=== PATIENT | female | born 1965 | race Caucasian/White ===

== ENCOUNTER → 2017-12-17 | Outpatient (CLI) | payer BC ==
--- NOTE | 2017-12-17 12:12 | WWHP ---
[facility] - HISTORY AND PHYSICAL DATE OF DICTATION: 12/17/2017. CHIEF COMPLAINT: The patient is here for her routine gynecologic exam and mammogram. HPI: This is a 52-year-old, G5, P2, 03-2 with an LMP of 11/23/2017. Her partner is status post vasectomy. The patient is without gynecologic complaints. She states her periods are regular every month. PAST MEDICAL HISTORY: Intermittent tachycardia. She denies any other medical problems. MEDICATIONS: None. ALLERGIES: SULFA. PAST SURGICAL HISTORY: D and C 2008. 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 Has no other history of STDs. SOCIAL HISTORY: She denies tobacco and drug use and has about 12 alcohol containing drinks per week. She has been with her boyfriend since 2014 and lives with him. She works for [employer] and works out of her home. FAMILY HISTORY: His strong for breast cancer in her mother. Maternal aunt and both grandmothers. One grandmother also had gastric cancer. REVIEW OF SYSTEMS: She has gained 2 pounds over the last year. She denies respiratory, cardiac or GI problems. : She does have occasional slight urinary leakage with coughing and sneezing and also occasionally with jumping. She states when she runs, she typically will not leak unless her bladder is fairly full. PHYSICAL EXAM: Blood pressure 105/70, height 5 feet 7 inches, weight 148 pounds. BMI 23. Temperature 98.5, pulse 58, this is a well-developed, well-nourished, white female, who is alert and oriented x3, in no acute distress. HEENT is within normal limits. NECK: Supple without mass or thyromegaly. Chest and LUNGS: Clear to auscultation. HEART: Regular rate and rhythm. Breasts are without mass or discharge. Axillary exam is negative for adenopathy. Back negative for CVA tenderness. ABDOMEN: Soft, nontender, without palpable masses pelvic exam normal external genitalia. Cervix and vagina appear normal. There is no evidence of prolapse at rest. With Valsalva and cough there is a slight urethral mobility with no urinary leakage demonstrated. The uterus is mid position nongravid size and nontender. There are no palpable adnexal masses or tenderness. Rectal exam is negative for mass or tenderness and is negative for occult blood. There is good sphincter tone. EXTREMITIES: Nontender. IMPRESSION: 1. 52-year-old premenopausal female with normal gynecologic exam whose partner is status post vasectomy. 2. Mild stress urinary incontinence without significant physical findings at this time. PLAN: 1. Pap smear was deferred since she had a normal one last year. 2. Self breast examination was discussed. 3. Screening mammogram will be done today. 4. I have recommended screening colonoscopy due to her age and Dr. Campbell's card was given to the patient for this. 5. I have recommended Kegel exercises and timed voids. Instructions on these were given to the patient. If she continues to have problems with stress urinary incontinence, consider referral to a LINE CONSTRUCTION SUPERINTENDENT urologist. 6. She will return in 1 year and p.r.n. MMMARY LOU / IJN: [id number] /
--- NOTE | 2017-12-19 08:27 | MM ---
Reason for exam: screening (asymptomatic). Last mammogram was performed 1 year and 4 months ago. History: Patient history of other cancer and had first child at age 33. Family history of breast cancer in maternal grandmother, breast cancer in mother, and breast cancer in maternal aunt. Physical Findings: A clinical breast exam by your physician is recommended on an annual basis and results should be correlated with mammographic findings. MG 3D Screening Mammo W/Cad Bilateral CC and MLO view(s) were taken. Prior study comparison: August 14, 2016, bilateral MG screening mammo w CAD. June 29, 2015, bilateral MG screening mammo w CAD. The breast tissue is heterogeneously dense. This may lower the sensitivity of mammography. No significant changes when compared with prior studies. ASSESSMENT: Benign, BI-RAD 2 RECOMMENDATION: Routine screening mammogram of both breasts in 1 year.
== END ==
LOC: WWCWWP 10:46
PROVIDERS: ATTEND Obstetrics & Gynecology
DX: Z12.31 Encounter for screening mammogram for malignant neoplasm of breast (principal)
CPT/HCPCS: 77063; 77067

== ENCOUNTER → 2018-02-27 | Outpatient (CLI) | payer BC ==
[2018-02-27 09:02] LABS: HCT 36.2 % (34.0-46.0); MCHC 33.2 g/dL (31.0-37.0); MCV 90.4 fL (80.0-100.0); Mean Platelet Volume 6.7; Platelet Count 241 k/uL (150-450); RBC 4.01 m/uL (3.80-5.40); RDW 12.5 % (11.5-15.5)
[2018-02-27 09:39] LABS: ALT 26 U/L (9-52); AST 18 U/L (14-36); Alkaline Phosphatase 54 U/L (38-126); Anion Gap 10 mmol/L; Blood Urea Nitrogen 13 mg/dL (7-17); Calcium 9.3 mg/dL (8.4-10.2); Carbon Dioxide 26 mmol/L (22-30); Chloride 105 mmol/L (98-107); Glucose 85 mg/dL (74-99); Sodium 141 mmol/L (137-145); Total Bilirubin 0.6 mg/dL (0.2-1.3); Total Protein 6.3 g/dL (6.3-8.2)
== END | disposition home or self-care (01) ==
LOC: LABWHC1 08:10
PROVIDERS: ATTEND Obstetrics & Gynecology
DX: R53.83 Other fatigue (principal)
CPT/HCPCS: 36415; 80053; 84443; 85027

== ENCOUNTER → 2019-04-22 | Outpatient (CLI) | payer BC ==
[2019-04-22 08:04] VITALS: BP 117/72; PULSE 50; RESP 16; TEMP 98.2; BMI 22.5
--- NOTE | 2019-04-22 08:46 | P.HPOB ---
History of Present Illness H&P Date: 04/22/19 Chief Complaint: The patient is here for her routine gynecologic exam and ma mmogram. This is a 54-year-old with an LMP of 04/10/2019. The patient's partner is status post vasectomy. The patient states she has noticed infrequent right lower quadrant and right pelvic pains during the past 6 months. She states they feel like crampy pains and are rated at a 4 out of 10 when she has them. She tends to notice this about one or 2 times per month and it can last a full day. She has noticed them more when she is doing lift exercises with weights. She denies any pain at this time. She is otherwise without complaints. Her menstrual periods are monthly but now can vary by half a week. Review of Systems The patient has lost 4 pounds over the last year. She denies respiratory, cardiac, or G.I. problems. Past Medical History Additional Past Medical History / Comment(s): Intermittent tachycardia. 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 She has no other history of STDs. History of Any Multi-Drug Resistant Organisms: None Reported Additional Past Surgical History / Comment(s): D&C 2008. Past Psychological History: No Psychological Hx Reported Smoking Status: Former smoker Past Alcohol Use History: Occasional (6 per week) Past Drug Use History: None Reported Additional History: She is engaged to be in July 2019. This will be her 4th marriage. She has been with her fianc since 2014. She works for [employer] and works out of her home. - Past Family History Mother Family Medical History: Cancer Additional Family Medical History / Comment(s): Breast cancer. A maternal aunt and maternal grandmother also had breast cancer. Father Family Medical History: CVA/TIA Medications and Allergies Home Medications Medication Instructions Recorded Confirmed Type No Known Home Medications 04/22/19 04/22/19 History Allergies Allergy/AdvReac Type Severity Reaction Status Date / Time Sulfa (Sulfonamide Allergy Anaphylaxis Unverified 04/22/19 08:05 Antibiotics) Exam Vital Signs Temp Pulse Resp BP Pulse Ox 04/22/19 07:58 98.2 F 50 L 16 117/72 100 Intake and Output 04/21/19 04/22/19 04/22/19 22:59 06:59 14:59 Other: Weight 65.317 kg Height 5'7", weight 144 pounds, BMI 22.6. This is a well-developed well-nourished white female who is alert and oriented times 3 in no acute distress. HEENT: Within normal limits. NECK: Supple without mass or thyromegaly. CHEST AND LUNGS: Clear to auscultation. HEART: Regular rate and rhythm. BREASTS: Are without mass or discharge. AXILLARY EXAM: Negative for adenopathy. BACK: Negative for CVA tenderness. ABDOMEN: Soft, nontender, without palpable masses. PELVIC EXAM: Normal external genitalia. Cervix and vagina appear normal. There is no unusual discharge. There is no evidence of prolapse. The uterus is midposition, nongravid size and nontender. There are no palpable adnexal masses or tenderness. RECTAL EXAM: rectovaginal exam is negative for mass or tenderness and is negative for occult blood. EXTREMITIES: Nontender. IMPRESSION: 1. 54 year old pre-menopausal female whose partner is status post vasectomy, with normal gynecologic exam. 2. Intermittent, infrequent right lower quadrant crampy pains with no significant physical findings at this time. Differential diagnosis will include G.I. cramping, small hernia, musculoskeletal pain, and less likely ovarian neoplasm. 3. Family history of breast cancer. PLAN: 1. Pap smear was performed. 2. Self breast awareness was discussed with the patient. 3. Screening mammogram will be done today. 4. Pelvic ultrasound will be scheduled. 5. I have recommended screening colonoscopy which she is declining at this time. She was instructed to call if she changes her mind about this. 6. She will try to see if her pains continue and, if so, if they are associated with any type of activity or associated symptoms. She will also try negative Valsalva exercises when she does notice the crampy discomfort. 7.She was advised to return in one year for her annual well woman exam and PRN.
--- NOTE | 2019-04-23 09:36 | MM ---
Reason for exam: screening (asymptomatic). Last mammogram was performed 1 year and 4 months ago. History: Patient history of other cancer and had first child at age 33. Family history of breast cancer in maternal grandmother, breast cancer in mother, and breast cancer in maternal aunt. Physical Findings: A clinical breast exam by your physician is recommended on an annual basis and results should be correlated with mammographic findings. MG 3D Screening Mammo W/Cad Bilateral CC and MLO view(s) were taken. Prior study comparison: December 17, 2017, bilateral MG 3d screening mammo w/cad. August 14, 2016, bilateral MG screening mammo w CAD. The breast tissue is heterogeneously dense. This may lower the sensitivity of mammography. No suspicious abnormality on the left. Right lower outer quadrant posterior depth focal asymmetry. ASSESSMENT: Incomplete: need additional imaging evaluation, BI-RAD 0 RECOMMENDATION: Special view mammogram of the right breast. If lesion persists on supplemental views, image directed ultrasound is recommended. [facility] will attempt to contact patient to return for supplemental views and ultrasound if indicated.
== END ==
LOC: WWCWWP 07:51
PROVIDERS: ATTEND Obstetrics & Gynecology
DX: Z12.31 Encounter for screening mammogram for malignant neoplasm of breast (principal)
CPT/HCPCS: 77063; 77067

== ENCOUNTER → 2019-04-27 | Outpatient (CLI) | payer BC ==
--- NOTE | 2019-04-28 07:38 | MM ---
Reason for exam: additional evaluation requested from abnormal screening. Last mammogram was performed less than 1 month ago. History: Patient history of other cancer and had first child at age 33. Family history of breast cancer in maternal grandmother, breast cancer in mother, and breast cancer in maternal aunt. Physical Findings: Nurse did not find any significant physical abnormalities on exam. MG 3D Work Up W/Cad RT Spot compression CC, spot compression MLO, and ML view(s) were taken of the right breast. Prior study comparison: April 22, 2019, bilateral MG 3d screening mammo w/cad. December 17, 2017, bilateral MG 3d screening mammo w/cad. The breast tissue is heterogeneously dense. This may lower the sensitivity of mammography. No significant new findings when compared with previous films. These results were verbally communicated with the patient and result sheet given to the patient on 04/27/19. ASSESSMENT: Probably benign, BI-RAD 3 RECOMMENDATION: Follow-up diagnostic mammogram of the right breast in 6 months.
== END | disposition home or self-care (01) ==
LOC: RADMAMWWP 15:09
PROVIDERS: ATTEND Obstetrics & Gynecology
DX: R92.8 Other abnormal and inconclusive findings on diagnostic imaging of breast (principal)
CPT/HCPCS: 77061; 77065

== ENCOUNTER → 2019-12-30 | Outpatient (CLI) | payer BC ==
--- NOTE | 2019-12-30 10:45 | MM ---
Reason for exam: follow-up at short interval from prior study. Last mammogram was performed 8 months ago. History: Patient history of other cancer and had first child at age 33. Family history of breast cancer in maternal grandmother at age 70, breast cancer in mother at age 50, and breast cancer in maternal aunt at age 60. Physical Findings: Nurse did not find any significant physical abnormalities on exam. MG 3D Diag Mammo W/Cad RT CC and MLO view(s) were taken of the right breast. Prior study comparison: April 27, 2019, right breast MG 3d work up w/cad RT. April 22, 2019, bilateral MG 3d screening mammo w/cad. The breast tissue is heterogeneously dense. This may lower the sensitivity of mammography. No suspicious abnormality. Superior right asymmetry resolves on spot compression view. These results were verbally communicated with the patient and result sheet given to the patient on 12/30/19. ASSESSMENT: Benign, BI-RAD 2 RECOMMENDATION: Return to routine screening mammogram schedule for both breasts. Back on schedule for April 2020.
== END | disposition home or self-care (01) ==
LOC: RADMAMWWP 09:40
PROVIDERS: ATTEND Obstetrics & Gynecology
DX: R92.8 Other abnormal and inconclusive findings on diagnostic imaging of breast (principal)
CPT/HCPCS: 77061; 77065

== ENCOUNTER → 2020-05-17 | Outpatient (CLI) | payer BC ==
[2020-05-17 16:22] VITALS: BP 118/77; PULSE 53; RESP 18; TEMP 98.2
--- NOTE | 2020-05-17 17:05 | P.HPOB ---
History of Present Illness H&P Date: 05/17/20 Chief Complaint: The patient is here for her routine gynecologic exam. This is a 55-year-old 033 with an LMP of 05/02/2020. She states her menses are regular every 4-5 weeks. Her is status post vasectomy. Last year I had recommended pelvic ultrasound because of some intermittent pelvic pains, but she states she did not have it done because the pains stopped. She denies any pains. She is without gynecologic complaints. Review of Systems The patient has gained 8 pounds over the last year. She denies respiratory, cardiac, or G.I. problems. Past Medical History Additional Past Medical History / Comment(s): Intermittent tachycardia. 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 She has no other history of STDs. History of Any Multi-Drug Resistant Organisms: None Reported Additional Past Surgical History / Comment(s): D&C 2008. Past Psychological History: No Psychological Hx Reported Smoking Status: Never smoker Past Alcohol Use History: Daily (2 per day) Additional Past Alcohol Use History / Comment(s): Quit smoking in high school. Past Drug Use History: None Reported Additional History: She has been since 2019 and this is her fourth marriage. She works for [employer] and works out of her home. - Past Family History Mother Family Medical History: Cancer Additional Family Medical History / Comment(s): Breast cancer. A maternal aunt, maternal grandmother, and Maternal great aunt also had breast cancer. Father Family Medical History: CVA/TIA Medications and Allergies Home Medications Medication Instructions Recorded Confirmed Type Multivitamin [Multivitamins Adult 1 tab PO QAM 05/17/20 05/17/20 History Gummies] Allergies Allergy/AdvReac Type Severity Reaction Status Date / Time Sulfa (Sulfonamide Allergy Anaphylaxis Unverified 05/17/20 16:16 Antibiotics) Exam Vital Signs Temp Pulse Resp BP Pulse Ox 05/17/20 16:16 98.2 F 53 L 18 118/77 100 Intake and Output 05/17/20 05/17/20 05/17/20 06:59 14:59 22:59 Other: Weight 68.946 kg Height 5 feet 6 inches, weight 152 pounds, BMI 24.5. This is a well-developed well-nourished white female who is alert and oriented times 3 in no acute distress. HEENT: Within normal limits. NECK: Supple without mass or thyromegaly. CHEST AND LUNGS: Clear to auscultation. HEART: Regular rate and rhythm. BREASTS: Are without mass or discharge. AXILLARY EXAM: Negative for adenopathy. BACK: Negative for CVA tenderness. ABDOMEN: Soft, nontender, without palpable masses. PELVIC EXAM: Normal external genitalia. Cervix and vagina appear normal. There is no unusual discharge. There is no evidence of prolapse. The uterus is midposition, nongravid size and nontender. There are no palpable adnexal masses or tenderness. RECTAL EXAM: Rectovaginal exam is negative for mass or tenderness and is negative for occult blood. EXTREMITIES: Nontender. IMPRESSION: 1. 55-year-old premenopausal female with normal gynecologic exam whose is status post vasectomy. 2. Strong family history of breast cancer in her mother, maternal grandmother, maternal great aunt, and maternal aunt. PLAN: 1. Pap smear was deferred since she had a normal one on 04/22/2019. 2. Self breast awareness was discussed with the patient. 3. Screening mammogram is due and the order slip was given to the patient for this. 4. We had a long discussion regarding genetic testing because of her strong family history of breast cancer. She states she may be interested in having this done. She believes her mother and sister tested positive for some type of BRCA variant. I have recommended that she get this information on what type of gene mutation her mother and sister had and then let me know if she would like to proceed with genetic counseling and testing for this. 5. Osteoporosis prevention was discussed. I have stressed the importance of adequate calcium, vitamin D and regular exercise. Recommended amounts of calcium and vitamin D were also discussed. 6. She will keep a menstrual calendar and let me know if she is having menstrual problems. 7. She was advised to return in one year for her annual well woman exam.
== END | disposition home or self-care (01) ==
LOC: WWCWWP 16:10
PROVIDERS: ATTEND Obstetrics & Gynecology
DX: Z53.9 Procedure and treatment not carried out, unspecified reason (principal)

== ENCOUNTER → 2020-10-10 | Outpatient (CLI) | payer BC ==
--- NOTE | 2020-10-11 14:08 | MM ---
Reason for exam: screening (asymptomatic). Last mammogram was performed 9 months ago. History: Patient history of other cancer and had first child at age 33. Family history of breast cancer in maternal grandmother at age 70, breast cancer in mother at age 50, and breast cancer in maternal aunt at age 60. Physical Findings: A clinical breast exam by your physician is recommended on an annual basis and results should be correlated with mammographic findings. MG 3D Screening Mammo W/Cad Bilateral CC and MLO view(s) were taken. Prior study comparison: December 30, 2019, right breast MG 3d diag mammo w/cad RT. April 27, 2019, right breast MG 3d work up w/cad RT. The breast tissue is heterogeneously dense. This may lower the sensitivity of mammography. Developing asymmetry right lower inner quadrant. This finding is changed when compared with previous exams. ASSESSMENT: Incomplete: need additional imaging evaluation, BI-RAD 0 RECOMMENDATION: Special view mammogram of the right breast. If lesion persists on supplemental views, image directed ultrasound is recommended. [facility] will attempt to contact patient to return for supplemental views and ultrasound if indicated.
== END | disposition home or self-care (01) ==
LOC: RADMAMWWP 16:24
PROVIDERS: ATTEND Obstetrics & Gynecology
DX: Z12.31 Encounter for screening mammogram for malignant neoplasm of breast (principal); Z80.3 Family history of malignant neoplasm of breast
CPT/HCPCS: 77063; 77067

== ENCOUNTER → 2020-10-17 | Outpatient (CLI) | payer BC ==
--- NOTE | 2020-10-17 10:30 | MM ---
Reason for exam: additional evaluation requested from abnormal screening. Last mammogram was performed less than 1 month ago. History: Patient history of other cancer and had first child at age 33. Family history of breast cancer in maternal grandmother at age 70, breast cancer in mother at age 50, and breast cancer in maternal aunt at age 60. Took hormonal contraceptives beginning at age 19. Physical Findings: Nurse did not find any significant physical abnormalities on exam. MG 3D Work Up W/Cad RT Spot compression CC, spot compression MLO, and LM view(s) were taken of the right breast. Prior study comparison: October 10, 2020, bilateral MG 3d screening mammo w/cad. December 30, 2019, right breast MG 3d diag mammo w/cad RT. The breast tissue is heterogeneously dense. This may lower the sensitivity of mammography. Lower inner quadrant focal asymmetries disperses on additional views. No significant new findings when compared with previous films. These results were verbally communicated with the patient and result sheet given to the patient on 10/17/20. ASSESSMENT: Negative, BI-RAD 1 RECOMMENDATION: Return to routine screening mammogram schedule for both breasts.
== END | disposition home or self-care (01) ==
LOC: RADMAMWWP 08:57
PROVIDERS: ATTEND Obstetrics & Gynecology
DX: R92.8 Other abnormal and inconclusive findings on diagnostic imaging of breast (principal)
CPT/HCPCS: 77061; 77065

== ENCOUNTER → 2021-06-13 | Outpatient (CLI) | payer BC ==
[2021-06-13 09:47] VITALS: BP 121/77; PULSE 50; RESP 16; TEMP 98.1
--- NOTE | 2021-06-13 10:41 | P.HPOB ---
History of Present Illness H&P Date: 06/13/21 Chief Complaint: The patient is here for her routine gynecologic exam. This is a 56-year-old 032 with an LMP of 05/06/2021. The patient states her menstrual periods have been less predictable over the past year. She currently has gone about 5 weeks since her last period and this is the longest she has gone. She does feel warm at times. She is otherwise without gynecologic complaints. Her partner is status post vasectomy. She states that she feels like she has gained weight. Her weight tends to fluctuate by 3-5 pounds. She thinks she gained 4 pounds within the last 3 days. Review of Systems The patient has lost 3 pounds over the last year, however she feels like she has gained some weight recently. She states her weight fluctuates by 3-5 pounds frequently. She denies respiratory, cardiac, or G.I. problems. Past Medical History Additional Past Medical History / Comment(s): Intermittent tachycardia. 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 She has no other history of STDs. History of Any Multi-Drug Resistant Organisms: None Reported Additional Past Surgical History / Comment(s): D&C 2008. Past Psychological History: No Psychological Hx Reported Smoking Status: Never smoker Past Alcohol Use History: Daily (About 12 drinks per week.) Additional Past Alcohol Use History / Comment(s): Quit smoking in high school. Past Drug Use History: None Reported Additional History: She has been since 2019. This is her fourth marriage. She works for [employer]. - Past Family History Mother Family Medical History: Cancer Additional Family Medical History / Comment(s): Breast cancer. A maternal aunt, maternal grandmother, and Maternal great aunt also had breast cancer. Father Family Medical History: CVA/TIA Medications and Allergies Home Medications Medication Instructions Recorded Confirmed Type Multivitamin [Multivitamins Adult 1 tab PO QAM 05/17/20 06/13/21 History Gummies] Allergies Allergy/AdvReac Type Severity Reaction Status Date / Time Sulfa (Sulfonamide Allergy Anaphylaxis Unverified 06/13/21 09:40 Antibiotics) Exam Vital Signs Temp Pulse Resp BP Pulse Ox 06/13/21 09:41 98.1 F 50 L 16 121/77 100 Intake and Output 06/12/21 06/13/21 06/13/21 22:59 06:59 14:59 Other: Weight 67.585 kg Height 5 feet 6-1/2 inches, weight 149 pounds, BMI 23.7. This is a well-developed well-nourished white female who is alert and oriented times 3 in no acute distress. HEENT: Within normal limits. NECK: Supple without mass or thyromegaly. CHEST AND LUNGS: Clear to auscultation. HEART: Regular rate and rhythm. BREASTS: Are without mass or discharge. AXILLARY EXAM: Negative for adenopathy. BACK: Negative for CVA tenderness. ABDOMEN: Soft, nontender, without palpable masses. PELVIC EXAM: Normal external genitalia. Cervix and vagina appear normal. There is no unusual discharge. There is no evidence of prolapse. The uterus is midposition, nongravid size and nontender. There are no palpable adnexal masses or tenderness. RECTAL EXAM: Rectovaginal exam is negative for mass or tenderness and is negative for occult blood. EXTREMITIES: Nontender. IMPRESSION: 1. 56-year-old perimenopausal female whose is status post vasectomy with slight menstrual irregularity and minimal vasomotor symptoms. 2. Or more gynecologic exam 3. Strong family history of breast cancer in her mother and several second- degree relatives. PLAN: 1. Pap smear cotest was performed. 2. Self breast awareness was discussed with the patient. We have also discussed symptoms associated with inflammatory breast cancer. 3. Screening mammogram will be due in September of this year and the order slip was given to the patient for this. 4. We have had a long discussion regarding her strong family history of breast cancer. She is interested in cancer genetic counseling and possible testing. She will be referred to [facility]. She was instructed to try to get as much family history is possible including test results from family members cancer genetic testing. 5. Osteoporosis prevention was discussed. I have stressed the importance of ad equate calcium, vitamin D and regular exercise. Recommended amounts of calcium and vitamin D were also discussed. 6. The patient will keep a menstrual calendar and call if she is having menstrual problems. 7. She is declining Covid vaccination. I have recommended that she reconsider this since there is a real risk of Covid infection and the possibility of serious Covid infections. 8. She was advised to return in one year for her annual well woman exam.
--- NOTE | 2021-06-28 14:47 | P.PN ---
Progress Note - Text Progress Note Date: 06/28/21 OUTPATIENT FOLLOW-UP NOTE TEST(S)/RESULTS: Test results from 06/13/2021 include negative Pap smear and positive high-risk HPV testing with negative type 16 and negative type 18. METHOD OF NOTIFICATION: The patient was notified by phone. PATIENT COMMENTS: The patient states she has been with her fourth for 6 years and this has been a monogamous relationship per the patient. DIAGNOSIS: Positive high-risk HPV testing with negative Pap smear. DISCUSSION: The ASCCP algorithm indicates there is a 4.8% LARRY-3 or greater risk in the next 5 years. 1 year follow-up is recommended. We have discussed HPV and how different types have different risks for cervical problems. She is to maintain a monogamous relationship. Her can be examined if he is having any issues such as wartlike lesions or abnormal changes of the skin on his penis. She understands that it can be difficult to know exactly the source of the HPV since it may stick around for many months or possibly years. PLAN: She was advised to return in one year for her annual well woman exam. Cotest will be performed at that time. She'll call if she thinks of any other additional questions.
--- NOTE | 2021-08-22 14:03 | P.PN ---
Progress Note - Text Progress Note Date: 08/22/21 OUTPATIENT FOLLOW-UP NOTE TEST(S)/RESULTS: Cancer genetic testing done through [facility] indicates she was positive for a variant of the CHEK2 gene and negative for the other 82 cancer associated genes that she was tested for. METHOD OF NOTIFICATION: The patient was previously notified of these results by the [facility] genetics service. I reviewed these findings again with her by phone. PATIENT COMMENTS: She understands that she is a increased risk for breast cancer and colon cancer. 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 DISCUSSION: I have received the letter sent to the patient by [facility] explaining the test results in getting recommendations. This indicates her lifetime breast cancer risk risk is probably less than the typical 15-40% risk in the general group of people with CHEK2 gene mutations. The exact number is not known, so they are recommending that we follow the recommendations for all CHEK2 gene mutations. They are recommending yearly mammograms and yearly breast MRIs distribute alternated every 6 months. Also they are recommending colonoscopies at least every 5 years. PLAN: As above. The patient will be due for her screening mammogram in September of this year which is next month. The order slip will be mailed to the patient for this. Six months after the mammogram, she is to do her MRI of the breasts. The order slip was also sent the patient for this. She will speak with her PCP regarding making arrangements for her first colonoscopy. She will be due for her yearly well woman examination in May 2022.
== END ==
LOC: WWCWWP 09:34
PROVIDERS: ATTEND Obstetrics & Gynecology
DX: Z01.419 Encounter for gynecological examination (general) (routine) without abnormal findings (principal); N92.6 Irregular menstruation, unspecified; Z87.891 Personal history of nicotine dependence; Z88.2 Allergy status to sulfonamides; Z80.3 Family history of malignant neoplasm of breast

== ENCOUNTER → 2021-12-15 | Outpatient (CLI) | payer BC ==
--- NOTE | 2021-12-15 12:03 | MM ---
Reason for exam: screening (asymptomatic). Last mammogram was performed 1 year and 2 months ago. History: Patient history of other cancer and had first child at age 33. Family history of breast cancer in maternal grandmother at age 70, breast cancer in mother at age 50, and breast cancer in maternal aunt at age 60. Took hormonal contraceptives beginning at age 19. Physical Findings: A clinical breast exam by your physician is recommended on an annual basis and results should be correlated with mammographic findings. MG 3D Screening Mammo W/Cad Bilateral CC and MLO view(s) were taken. Prior study comparison: October 17, 2020, right breast MG 3d work up w/cad RT. October 10, 2020, bilateral MG 3d screening mammo w/cad. The breast tissue is heterogeneously dense. This may lower the sensitivity of mammography. Focal asymmetry upper outer right breast zone C. This finding is changed when compared with previous exams. ASSESSMENT: Incomplete: need additional imaging evaluation, BI-RAD 0 RECOMMENDATION: Special view mammogram of the right breast. If lesion persists on supplemental views, image directed ultrasound is recommended. [facility] will attempt to contact patient to return for supplemental views and ultrasound if indicated.
== END | disposition home or self-care (01) ==
LOC: RADMAMWWP 07:40
PROVIDERS: ATTEND Obstetrics & Gynecology
DX: Z12.31 Encounter for screening mammogram for malignant neoplasm of breast (principal); Z80.3 Family history of malignant neoplasm of breast
CPT/HCPCS: 77063; 77067

== ENCOUNTER → 2021-12-19 | Outpatient (CLI) | payer BC ==
--- NOTE | 2021-12-19 09:43 | MM ---
Reason for exam: additional evaluation requested from abnormal screening. Last mammogram was performed less than 1 month ago. History: Patient has history of breast cancer at age 56, history of other cancer, and had first child at age 33. Family history of breast cancer in maternal grandmother at age 70, breast cancer in mother at age 50, and breast cancer in maternal aunt at age 60. Took hormonal contraceptives beginning at age 19. Physical Findings: A clinical breast exam by your physician is recommended on an annual basis and results should be correlated with mammographic findings. MG 3D Work Up W/Cad RT CC, MLO, and ML view(s) were taken of the right breast. Prior study comparison: December 15, 2021, bilateral MG 3d screening mammo w/cad. October 17, 2020, right breast MG 3d work up w/cad RT. The breast tissue is heterogeneously dense. This may lower the sensitivity of mammography. The superior asymmetric density appears to disperse on true lateral. These results were verbally communicated with the patient and result sheet given to the patient on 12/19/21. ASSESSMENT: Incomplete: need additional imaging evaluation, BI-RAD 0 RECOMMENDATION: Ultrasound of the right breast. (superior half)
--- NOTE | 2021-12-19 09:46 | USB ---
Reason for exam: additional evaluation requested from abnormal screening. History: Patient has history of breast cancer at age 56, history of other cancer, and had first child at age 33. Family history of breast cancer in maternal grandmother at age 70, breast cancer in mother at age 50, and breast cancer in maternal aunt at age 60. Took hormonal contraceptives beginning at age 19. Physical Findings: A clinical breast exam by your physician is recommended on an annual basis and results should be correlated with mammographic findings. US Breast Workup Limited RT Right limited breast ultrasound including focal area of concern, retroareolar and axilla demonstrates a 0.5 x 0.4 x 0.2cm oval, cystic, complicated lesion at 2 o'clock, probably debris filled, a 0.4 x 0.4 x 0.3cm oval, cystic lesion at 9 o'clock, a 0.5 x 0.6 x 0.4cm oval, lobular, cystic lesion at 10 o'clock and a 0.9 x 0.9 x 0.5cm oval, cystic lesion at 10 o'clock. These results were verbally communicated with the patient and result sheet given to the patient on 12/19/21. ASSESSMENT: Probably benign, BI-RAD 3 RECOMMENDATION: Follow-up diagnostic mammogram of the right breast in 6 months.
--- NOTE | 2021-12-19 13:31 | P.PN ---
Progress Note - Text Progress Note Date: 12/19/21 OUTPATIENT FOLLOW-UP NOTE TEST(S)/RESULTS: Right breast workup done on 12/19/2021 was probably benign. A 6 month right diagnostic mammogram was recommended*. METHOD OF NOTIFICATION: The patient was notified by phone. PATIENT COMMENTS: The patient is wondering if she will need the 6 month right diagnostic mammogram since she is already planning on having a a bilateral MRI of the breasts because of her family history and genetic testing. DIAGNOSIS: Probably benign right breast workup with recommendation for 6 month follow-up. DISCUSSION: I have reviewed the ultrasound and right mammogram done today with the radiologist who read the studies. I let him know that a 6 month MRI was planned because of her genetic testing. He states the MRI in 6 months will be adequate and the additional mammogram is not necessary if the MRI is done. PLAN: MRI of both breasts in 6 months. The patient states she has the order slip for this and will schedule this.
== END | disposition home or self-care (01) ==
LOC: RADMAMWWP 07:40
PROVIDERS: ATTEND Obstetrics & Gynecology
DX: R92.8 Other abnormal and inconclusive findings on diagnostic imaging of breast (principal); Z85.3 Personal history of malignant neoplasm of breast; Z80.3 Family history of malignant neoplasm of breast
CPT/HCPCS: 77061; 77065

== ENCOUNTER → 2022-06-22 | Outpatient (CLI) | payer BC | END | disposition home or self-care (01) | LOC: RADMAMWWP 11:09 | PROVIDERS: ATTEND Obstetrics & Gynecology | DX: Z53.9 Procedure and treatment not carried out, unspecified reason (principal) ==

== ENCOUNTER → 2022-07-23 | Outpatient (CLI) | payer BC ==
--- NOTE | 2022-08-02 06:45 | BMR ---
EXAMINATION TYPE: MR breast BILAT wo/w con DATE OF EXAM: 07/23/2022 COMPARISON: .Ultrasound dated 12/19/2021 BI-RADS 3. Mammogram dated 12/19/2021 BI-RADS 0. Mammogram dated 12/15/2021 BI-RADS 0. Mammogram dated 10/27/2020. Mammogram dated 10/10/2020. HISTORY: Genetic susceptibility to breast ca, dense breast tissue, yearly screening, Abnormal right b reast mammogram on 12/15/2021 Case reviewed in consultation with [facility] radiologist. The report is as follows. TECHNIQUE: PULSE SEQUENCES: Multiplanar, multisequence MR images of the breast were obtained on a MRI imaging sc raffaele. Pre-contrast coronal STIR obtained using the body coil. Pre-contrast axial T2 fat-saturated, p re-contrast non-fat saturated T1, and one pre- and five post-contrast fat-saturated images were obtai danette of both breasts together with the breast coil. Numerous diffusion-weighted sequences were obtaine d. Post-processed subtraction and MIP reconstructions were then generated. Dynamic images were spatia lly registered using the [employer] software package, and dynamic curves and parametric image s were evaluated. As part of the dynamic portion of this examination, intravenous contrast was administered. Field of view for the dynamic portion of this study was 34 cm. COMPARISON: FINDINGS: The technical quality of this study is considered adequate to make a final assessment and recommendat ion. There is heterogeneous fibroglandular tissue bilaterally and mild background enhancement. Coronal STIR T2 sequence demonstrates normal axillary lymph nodes. Axial T2 sequence demonstrates no fluid collections. There are numerous bilateral scattered simple cy sts, the largest 1 in the posterior upper-outer quadrant of the right breast measures 12 mm Long axis axial image 30 . Non fat saturated T1 sequence demonstrates no fat containing lesions. Delayed post contrast sequence demonstrates no internal mammary lymphadenopathy. Regarding the right breast: There are no masses, architectural distortion or suspicious areas of enha ncement. Regarding the left breast: There are no greater than 5 mm enhancing masses, architectural distortion or suspicious areas of enhancement. There is a 4-5 mm round enhancing mass in the anterior left breas t superior subareolar region image 647 series 701 presumed benign based on size along with round circ umscribed appearance. A few additional other tiny round enhancing masses are noted bilaterally. IMPRESSION: No evidence of malignancy in either breast. No lymphadenopathy. Recommendations: Next mammographic evaluation will be due in December 2022. If the lifetime risk of aide st cancer is greater than 20-25 percent, then next high risk screening breast MRI will be due in 12 m [facility]. BI-RADS category 2, benign right breast. BI-RADS category 2, benign left breast.
== END | disposition home or self-care (01) ==
LOC: RADMRIMAIN 07:52
PROVIDERS: ATTEND Obstetrics & Gynecology
DX: Z15.01 Genetic susceptibility to malignant neoplasm of breast (principal)
CPT/HCPCS: 77049; A9585

== ENCOUNTER → 2023-02-20 | Outpatient (CLI) | payer BC ==
--- NOTE | 2023-02-21 08:43 | MM ---
Reason for Exam: Screening (asymptomatic). Last mammogram was performed 1 year(s) and 2 month(s) ago. Patient History: Menarche at age 17. First Full-Term at age 33. Late child-bearing (after 30). Postmenopausal. Other cancer. Hormonal Contraceptives, from age 19 until age 50. Maternal grandmother had breast cancer, age 70. Maternal aunt had breast cancer, age 60. Mother had breast cancer, age 50. Risk Values: Elva 5 year model risk: 2.3%. NCI Lifetime model risk: 14.3%. Prior Study Comparison: 10/17/2020 Right Diagnostic Mammogram, [facility]. 12/15/2021 Bilateral Screening Mammogram, [facility]. 12/19/2021 Right Diagnostic Mammogram, [facility]. Tissue Density: The breast tissue is extremely dense which could obscure a lesion on mammography. Findings: Analyzed By CAD. There are benign-appearing bilateral axillary lymph nodes redemonstrated. There is no suspicious group of microcalcifications or new suspicious mass in either breast. Overall Assessment: Negative, BI-RAD 1 Management: Screening Mammogram of both breasts in 1 year. Some advise bilateral breast ultrasound surveillance in patients with background extremely dense tissue. Patient should continue monthly self-breast exams. A clinical breast exam by your physician is recommended on an annual basis. This exam should not preclude additional follow-up of suspicious palpable abnormalities. Note on Elva scores and lifetime risk: 1. A Elva score greater than 3% is considered moderate risk. If this is the case, consider specialist referral to assess eligibility for a risk reducing agent. 2. If overall lifetime risk for the development of breast cancer is 20% or higher, the patient may qualify for future screening with alternating mammogram and breast MRI. Electronically signed and approved by: Ron Campbell M.D.
== END | disposition home or self-care (01) ==
LOC: RADMAMWWP 07:08
PROVIDERS: ATTEND Obstetrics & Gynecology
DX: Z12.31 Encounter for screening mammogram for malignant neoplasm of breast (principal); Z78.0 Asymptomatic menopausal state; Z80.3 Family history of malignant neoplasm of breast
CPT/HCPCS: 77063; 77067

== ENCOUNTER → 2024-04-01 | Outpatient (CLI) | payer OTHER ==
[2024-04-01 08:00] VITALS: BP 117/78; PULSE 57; RESP 17; TEMP 98
--- NOTE | 2024-04-01 08:44 | P.HPOB ---
History of Present Illness H&P Date: 04/01/24 Chief Complaint: The patient is here for her routine gynecologic exam and ma mmogram. This is a 58-year-old with an LMP of March 2023. The patient states it has been 1 year since her last menstrual period. She is without gynecologic complaints. She had a negative Pap smear with positive high-risk HPV testing (- 16, -18) on 06/13/2021. Her next Pap smear cotest on 12/18/2022 was negative. She has a known genetic mutation which was found after she underwent testing because of her strong family history of breast cancer. 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 She states she had her breast MRI done in August 2023 at a different [facility] since this testing was not available at [facility] at that time. Review of Systems She has gained about 6 pounds over the past year but she is trying to lose weight through weight watchers. She denies respiratory or cardiac problems. GI: Occasional constipation which she thinks may be related to eating less fiber on her weight watchers diet. She also thinks she needs to drink more water. Past Medical History Additional Past Medical History / Comment(s): Intermittent tachycardia(SVT). 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 She has no other history of STDs. History of Any Multi-Drug Resistant Organisms: None Reported Additional Past Surgical History / Comment(s): D&C 2008. Colonoscopy 2022(next after 5yr). Past Psychological History: No Psychological Hx Reported Smoking Status: Former smoker Past Alcohol Use History: Daily (1 drink per day.) Additional Past Alcohol Use History / Comment(s): Quit smoking in high school. Past Drug Use History: None Reported Additional History: She has been since 2019 and this is her fourth marriage. She works for [employer] remotely. She recently moved to the [place] area. - Past Family History Mother Family Medical History: Cancer Additional Family Medical History / Comment(s): Breast cancer. A maternal aunt, maternal grandmother, and Maternal great aunt also had breast cancer. Father Family Medical History: CVA/TIA Medications and Allergies Home Medications Medication Instructions Recorded Confirmed Type Multivitamin [Multivitamins Adult 1 tab PO QAM 05/17/20 04/01/24 History Gummies] Ascorbic Acid [Vitamin C] 1,000 mg PO DAILY 12/18/22 04/01/24 History Ergocalciferol [Vitamin D2 (1250 1 cap PO DAILY 12/18/22 04/01/24 History Mcg = 25708 Iu)] Allergies Allergy/AdvReac Type Severity Reaction Status Date / Time Sulfa (Sulfonamide Allergy Anaphylaxis Unverified 04/01/24 07:57 Antibiotics) Exam Vital Signs Temp Pulse Resp BP Pulse Ox 04/01/24 07:57 98 F 57 L 17 117/78 97 Intake and Output 03/31/24 04/01/24 04/01/24 22:59 06:59 14:59 Other: Weight 70.76 kg Height 5 feet 7 inches, weight 156 pounds, BMI 24.4. This is a well-developed well-nourished white female who is alert and oriented times 3 in no acute distress. HEENT: Within normal limits. NECK: Supple without mass or thyromegaly. CHEST AND LUNGS: Clear to auscultation. HEART: Regular rate and rhythm. BREASTS: Are without mass or discharge. AXILLARY EXAM: Negative for adenopathy. BACK: Negative for CVA tenderness. ABDOMEN: Soft, nontender, without palpable masses. PELVIC EXAM: Normal external genitalia with minimal atrophy. Cervix and vagina appear normal with minimal atrophy. There is no unusual discharge. There is no evidence of prolapse. The uterus is midposition, nongravid size and nontender. There are no palpable adnexal masses or tenderness. RECTAL EXAM: Rectovaginal exam is negative for mass or tenderness and is negative for occult blood. EXTREMITIES: Nontender. IMPRESSION: 1. 58-year-old newly menopausal female whose is status post vasectomy with normal gynecologic exam. 2. Previous positive high-risk HPV testing with negative Pap smear on 06/13/2021. The following Pap smear cotest was negative on 12/18/2022. 3. 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 She is negative for BRCA mutations. PLAN: 1. Per the ASCCP management guidelines, 1 year follow-up after her last Pap smear cotest is due and the Pap smear cotest was performed. 2. Self breast awareness was discussed with the patient. We have also d iscussed symptoms associated with inflammatory breast cancer. 3. Screening mammogram will be done today. Plan on repeating the bilateral breast mammogram in 6 months. The order slip was given to the patient for that. 4. Osteoporosis prevention was discussed. I have stressed the importance of adequate calcium, vitamin D and regular exercise. Recommended amounts of calcium and vitamin D were also discussed. 5. She was advised to return in one year for her annual well woman exam.
== END ==
LOC: WWCWWP 07:40
PROVIDERS: ATTEND Obstetrics & Gynecology
DX: Z12.31 Encounter for screening mammogram for malignant neoplasm of breast (principal); Z80.3 Family history of malignant neoplasm of breast; Z87.891 Personal history of nicotine dependence; Z78.0 Asymptomatic menopausal state; Z88.2 Allergy status to sulfonamides
CPT/HCPCS: 77063; 77067

== ENCOUNTER → 2024-11-15 | Outpatient (CLI) | payer OTHER ==
--- NOTE | 2024-11-18 12:26 | BMR ---
EXAM DATE: 11/15/2024 EXAM DESCRIPTION: MRI-Breast Bilat (W/WO Contrast) INDICATION: >20% lifetime risk for malignancy presenting for high risk surveillance, family history of breast cancer, dense breast COMPARISON: PRIOR MRIs: 07/23/2022. Correlation to mammograms: 06/01/2024. Correlation to ultrasound: None available. CONTRAST: 6.5 cc Gadavist IV gadolinium contrast TECHNIQUE: Study was performed at [facility] with Radiologic interpretation by [facility] Multiplanar multisequence MR imaging of both breasts was performed with a dedicated breast coil. Images were obtained before and after administration of IV gadolinium, using the standard breast mass protocol. Computer aided detection was utilized for interpretation. FINDINGS: LMP: Postmenopausal General breast composition: The breast is heterogeneously dense Background parenchymal enhancement: Mild RIGHT BREAST: The T2 weighted series shows few scattered nonenhancing cysts. Review of the dynamic series shows no early or abnormal enhancement. LEFT BREAST: The T2 weighted series shows no areas of abnormal signal intensity. Review of the dynamic series shows no early or abnormal enhancement. LYMPH NODES: There is no evidence of internal mammary or axillary adenopathy. Miscellaneous findings:Small hiatal hernia IMPRESSION: RIGHT BREAST: No MR evidence of malignancy. LEFT BREAST: No MR evidence of malignancy. OVERALL ASSESSMENT -- BI- RADS 1: Negative ANNUAL SCREENING BREAST MRI IN ADDITION TO MAMMOGRAPHY IS RECOMMENDED IN PATIENTS WITH LIFETIME RISK OF BREAST CANCER >20% MTDD
== END | disposition home or self-care (01) ==
LOC: RADMRIMAIN 13:54
PROVIDERS: ATTEND Obstetrics & Gynecology
DX: Z15.01 Genetic susceptibility to malignant neoplasm of breast (principal); R92.30 Dense breasts, unspecified; K44.9 Diaphragmatic hernia without obstruction or gangrene; Z78.0 Asymptomatic menopausal state; Z80.3 Family history of malignant neoplasm of breast
CPT/HCPCS: 77049; A9585